=== PATIENT | male | born 1995 | race Two or more races ===

== ENCOUNTER 2016-11-10 17:34 | Emergency (ER) | payer SELFPAY ==
[~2016-11-10] VITALS: Ht 185.4 cm; Wt 99.8 kg
[2016-11-10] MEDS ORDERED: NKM (17:47)
[2016-11-10] MEDS ORDERED: Methocarbamol 750mg tab ORAL ONE (18:00)
[2016-11-10] MEDS ORDERED: Ketorolac 30mg Inj IM ONE (18:00)
[2016-11-10 19:20] VITALS: BP 140/87
[2016-11-10 19:41] LABS: APPEARANCE,URINE CLOUDY; KETONES,URINE NEGATIVE (NEGATIVE); LEUKOCYTE ESTERASE ,URINE NEGATIVE (NEGATIVE); NITRITE,URINE NEGATIVE (NEGATIVE); PH,URINE 6 (4.5-8.0); PROTEIN,URINE NEGATIVE (NEGATIVE); UROBILINOGEN,URINE NORMAL MG/DL (0.0-1.0)
[2016-11-10] MEDS ORDERED: ROBAXIN-750750 MG PO (19:48)
[2016-11-10] MEDS ORDERED: IBUPROFEN600 MG ORAL (19:48)
[2016-11-10 19:55] VITALS: BP 140/87
--- NOTE | 2016-11-13 11:08 | Emergency Room Report ---
History of Present Illness General Chief Complaint: Pain Source: Patient Present Illness HPI The pt is a 21 yo M presenting for mid abdominal pain and testicular pain after he states he mistakenly ran into the back of his car 2 weeks prior. Pain has decreased since the injury. It is now described as a 6/10 dull ache to the mid abdomen and radiates inferiorly to the groin. Pain worse with movement such as stretching. He denies prior injury to these areas. He denies any other symptoms such as N, V, F, chills, dysuria, hematuria, penile DC, constipation, diarrhea Allergies: Coded Allergies: No Known Allergies (Unverified , 11/10/16) Patient History Past Medical History: see triage record Pertinent Family History: none Reviewed Nursing Documentation: PMH: Agreed, PSxH: Agreed Nursing Documentation-PM Past Medical History: No Stated History Review of Systems All Other Systems: negative except mentioned in HPI Physical Exam Vital Signs Date Time Temp Pulse Resp B/P Pulse Ox O2 Delivery O2 Flow Rate FiO2 11/10/16 17:42 98.4 72 16 157/85 99 Room Air Sp02 EP Interpretation: reviewed, normal General Appearance: no apparent distress, alert, GCS 15, non-toxic Head: normocephalic, atraumatic Eyes: bilateral eye PERRL, bilateral eye normal inspection ENT: hearing grossly normal, normal pharynx, no angioedema, normal voice Neck: full range of motion, supple/symm/no masses Respiratory: chest non-tender, lungs clear, normal breath sounds, speaking full sentences Cardiovascular #1: regular rate, rhythm, no edema Cardiovascular #2: 2+ carotid (R), 2+ carotid (L), 2+ radial (R), 2+ radial (L) , 2+ dorsalis pedis (R), 2+ dorsalis pedis (L) Gastrointestinal: normal bowel sounds, non tender, soft, non-distended, no guarding, no rebound Rectal: deferred Genitourinary: normal inspection, no CVA tenderness, penis normal, scrotum normal Musculoskeletal: back normal, gait/station normal, normal range of motion, non- tender Neurologic: alert, oriented x3, responsive, motor strength/tone normal, sensory intact, speech normal Psychiatric: judgement/insight normal, memory normal, mood/affect normal, no suicidal/homicidal ideation Reflexes: 3+ bicep (R), 3+ bicep (L), 3+ tricep (R), 3+ tricep (L), 3+ knee (R) , 3+ knee (L) Skin: normal color, no rash, warm/dry, well hydrated Lymphatic: no adenopathy Medical Decision Making PA Attestation Dr. Lewis is my supervising physician. Patient management was discussed with my supervising physician Diagnostic Impression: Primary Impression: Abdominal wall strain Qualified Codes: S39.011A - Strain of muscle, fascia and tendon of abdomen, initial encounter ER Course The pt is a 21 yo M presenting for mid abdominal pain and testicular pain DDx: muscle strain, appendicitis, UTI, STD, orchitis, constipation PE: vitals WNL. NAD Abd is soft and non tender. normal BS. No guarding. : penis and scrotum unremarkable. No erythema. No edema. Non tender. No masses. UA unremarkable. THe pt is given Toradol and robaxin and is feeling better. He will be MT'ed home and is given ER precautions Labs Test 11/10/16 18:40 Urine Color Pale yellow Urine Appearance Cloudy Urine pH 6 (4.5-8.0) Urine Specific [place] 1.020 (1.005-1.035) Urine Protein Negative (NEGATIVE) Urine Glucose (UA) Negative (NEGATIVE) Urine Ketones Negative (NEGATIVE) Urine Occult Blood Negative (NEGATIVE) Urine Nitrite Negative (NEGATIVE) Urine Bilirubin Negative (NEGATIVE) Urine Urobilinogen Normal MG/DL (0.0-1.0) Urine Leukocyte Esterase Negative (NEGATIVE) Lab Results Impression Unremarkable. No hematuria. No signs of infection Last Vital Signs Date Time Temp Pulse Resp B/P Pulse Ox O2 Delivery O2 Flow Rate FiO2 11/10/16 19:55 98.6 78 17 140/87 100 Room Air Status: improved Disposition: HOME, SELF-CARE Condition: Improved Scripts Methocarbamol* (ROBAXIN-750*) 750 Mg Tablet 750 MG PO TID, #21 TAB 0 Refills Prov: TERZIAN,OSMIN P.A. 11/10/16 Ibuprofen* (MOTRIN*) 600 Mg Tablet 600 MG ORAL Q8H Y for For Pain, #30 TAB 0 Refills Prov: TERZIAN,OSMIN P.A. 11/10/16 Patient Instructions: Muscle Strain, [id number] Additional Instructions: I discussed my findings with the patient. All questions and concerns have been answered. Treatment and medication compliance have been addressed. I advised the patient that they need to follow up with PMD in 3-5 days. Return to ED if pain remains or worsens, numbness or tingling occurs, new rash is noticed, fever is noticed, or if needed for any reason. Patient verbalized understanding of discharge instructions. OSMIN GORMAN Nov 13, 2016 11:08
== END 2016-11-10 19:55 | disposition home or self-care (01) ==
LOC: EMR 18:22
DX: S39.011A Strain of muscle, fascia and tendon of abdomen, initial encounter (principal); N50.819 Testicular pain, unspecified; W22.09XA Striking against other stationary object, initial encounter; Y93.9 Activity, unspecified; Y92.9 Unspecified place or not applicable
CPT/HCPCS: 81003; 96372; 99283; J1885